=== PATIENT | female | born 1940 | race Caucasian/White ===

== ENCOUNTER 2025-09-14 07:03 | Inpatient (IN) ==
--- NOTE | 2025-09-14 07:54 | ED.PDOC ---
General <SARABJIT KEVIN MD - Last Filed: 09/14/25 08:41> [facility] ED Provider: Dr. SARABJIT KEVIN MD Chief Complaint: Abnormal Labs Stated Complaint: 84 yo WF seen in the office a couple of days ago and had outpatient labs and was contacted about her very low hemoglobin of 5 or less. Been feeling dizzy on standing, not when lying down, and GIRARD lately. Hx of recent severe anemia and had transfusion in April, late July and possibly May. Since then she had colonoscopy that was non-diagnostic but no EGD. Also seen at the Cancer center and had studies, including BM biopsy. Have not been told why she's anemic. Denied any rectal bleeding or hematuria. No abdominal pain or chest pain. No back pain. Time Seen by Provider: 09/14/25 07:40 Mode of Arrival: Walk-In Information Source: Patient Exam Limitations: No limitations Primary Care Provider: NADEEM WOODSON DNP,CLINICAL COUNSELOR Referred to ED by: PCP Seen Within Last 72 Hours for Same Complaint By: Clinic Nursing and Triage Documentation Reviewed and Agree: Yes Opioid Naive vs. Tolerant Does Patient Take Opioids?: No What is Opioid Naive?: *Opioid Naive implies the patient is not already taking opioids or not chronically receiving opioids on a daily basis. *PRN dosing is not "usually" associated with tolerance. *Patients are at higher risk of over-sedation and aspiration. What is Opioid Tolerant?: *Opioid Tolerance implies less than the expected response to an opioid. *Acquired tolerance is defined by the patient taking 60mg of oral morphine daily (or equianalgesic dose of another opioid) for 1 week or more. *Often associated with chronic pain. *May take more than usual dose to achieve desired pain control. Review of Systems <SARABJIT KEVIN MD - Last Filed: 09/14/25 08:41> Review Of Systems Constitutional: Reports Malaise and Weakness Eyes: Reports No symptoms Ears, Nose, Mouth, Throat: Reports No symptoms Respiratory: Reports Cough (dry cough for several weeks. 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 complications (ICD-10) Family History Mother Hypertension FATHER Prostate cancer Social History Smoking and tobacco status: Never smoker Alcohol intake: never Surgical History H/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) Female Reproductive History Menstrual Hx Hysterectomy: Yes Physical Exam <SARABJIT KEVIN MD - Last Filed: 09/14/25 08:41> Physical Exam Appearance: Reports No pain distress and Well-nourished Ill-appearing: Mild Pain Distress: None Eyes: Reports EOMI ENT: Reports Nose normal and Oropharynx normal Neck: Supple Respiratory: Reports Airway patent, Breath sounds clear and Respirations nonlabored; Denies Wheezes or Retractions Cardiovascular: Reports RRR, Pulses normal, No rub and No murmur GI/: Reports Soft, Nontender, No masses and Bowel sounds normal; Denies Tender Musculoskeletal: Reports Normal strength, ROM intact, No edema and No calf tenderness Skin: Reports Warm, Dry and Pale Neurological: Reports Sensation intact, Motor intact, Reflexes intact, Alert and Oriented Psychiatric: Reports Affect appropriate and Mood appropriate Interpretation <SARABJIT KEVIN MD - Last Filed: 09/14/25 08:41> EKG Interpretation EKG Interpretation By: ED Physician Time of EKG #1: 11:13 Rate: Normal Rhythm: Sinus Ectopy: None Alicia: Left ST Segment: Normal Interpretation: NSR, LAD, 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 Perry) Admit To: Observation Critical Care Note <ORQUIDEA GRANADOS MD - Last Filed: 09/15/25 07:31> Critical Care Note Total Critical Care Time (mins): 30 Comments: Patient's hemoglobin noted to be critical and arrangements were made for blood transfusion and compatibility prior to admission. Patient has had previous colonoscopy but has not had an upper endoscopy. Patient will continue to follow-up with GI Dr. Parada in outpatient basis but needs to be admitted for transfusion and stabilization. Discussions made with hospitalist for admission. Course <SARABJIT KEVIN MD - Last Filed: 09/14/25 08:41> Course 09/15/25 05:05 09/15/25 05:05 Orders, Labs, Meds: Lab Review 09/14/25 09/14/25 08:04 08:04 WBC 4.17 L RBC 1.96 L Hgb 6.0 L* Hct 20.1 L MCV 102.6 H MCH 30.6 MCHC 29.9 L RDW Coeff of Ashley 16.7 H Plt Count 215 Immature Gran % (Auto) 0.5 Neut % (Auto) 78.6 H Lymph % (Auto) 14.9 [place] % (Auto) 5.3 Eos % (Auto) 0.5 Baso % (Auto) 0.2 Neut # (Auto) 3.3 Lymph # (Auto) 0.6 [place] # (Auto) 0.2 L Eos # (Auto) 0.0 Baso # (Auto) 0.0 Immature Gran # (Auto) 0.0 Sodium 132.1 L Potassium 2.69 L* Chloride 99.3 Carbon Dioxide 29.9 Anion Gap 5.59 BUN 13.7 Creatinine 0.95 Estimated GFR (MDRD) 56.00 BUN/Creatinine Ratio 14.42 Glucose 155.6 H Calcium 8.14 L Magnesium 1.53 L Iron 68.6 TIBC 291 % Saturation 24 Total Bilirubin 1.34 H AST 29.2 ALT 12.3 Alkaline Phosphatase 78.6 Total Protein 6.41 Albumin 2.96 L Globulin 3.45 Albumin/Globulin Ratio 0.85 Vitamin B12 > 1000 H Folate 10.10 Blood Type O POSITIVE O POSITIVE Antibody Screen Negative Crossmatch (AHG) See Detail Orders Category Date Time Status ADMIT OBSERVATION [PLACE PATIENT OBSERVATION] .TO ADMISSION 09/14/25 09:54 Active MEDSURG (MONITORED BED) TELEMETRY MONITORING TELE CARE 09/14/25 09:54 Active Saline Lock [ED IV/MEDIPORT/POWERPORT] .ONCE EMERGENCY 09/14/25 07:49 Active ABO/RH TYPE Stat LAB 09/14/25 08:04 Completed CBC W/ AUTO DIFF Stat LAB 09/14/25 08:04 Completed CMP [COMPREHENSIVE METABOLIC PANEL] Stat LAB 09/14/25 08:04 Completed FOLATE Stat LAB 09/14/25 08:04 Completed IRON AND TIBC Stat LAB 09/14/25 08:04 Completed PRBC Transfusion [PACKED CELLS] Stat LAB 09/14/25 08:04 Completed TYPE AND SCREEN Stat LAB 09/14/25 08:04 Completed VITAMIN B12 Stat LAB 09/14/25 08:04 Completed 0.9 % Sodium Chloride [Saline Flush] Meds 09/14/25 07:49 Active 1 syr IVF PRN PRN Potassium Chloride [Potassium Chl 10% Oral Rose] Meds 09/14/25 08:40 Discontinued 30 meq PO ONCE STA Potassium Chloride [Potassium Chloride 10 Meq/100 ml Meds 09/14/25 08:40 Discontinued Premix] 10 meq in 100 ml IV ONCE Medications Generic Name Dose Route Start Last Admin Trade Name Freq PRN Reason Stop Dose Admin Acetaminophen 650 mg 09/14/25 13:11 09/15/25 06:34 Acetaminophen 325 Mg Tablet PO 650 mg Q4H PRN Administration Mild Pain Atorvastatin Calcium 20 mg 09/15/25 09:00 Atorvastatin Calcium 20 Mg Tablet PO DAILY PAYTON Benzonatate 100 mg 09/14/25 13:11 09/14/25 21:01 Benzonatate 100 Mg Capsule PO 100 mg TID PRN Administration Cough Cetirizine HCl 10 mg 09/15/25 09:00 Cetirizine Hcl 10 Mg Tablet PO DAILY PAYTON Dextrose 50 ml 09/14/25 13:11 Dextrose 50 % In Water 50 Ml Disp.Syrin IVP ONCE PRN Unconscious Hypoglycemia Protocol Doxycycline Hyclate 100 mg 09/14/25 14:30 09/14/25 21:00 Doxycycline Hyclate 100 Mg Capsule PO 09/18/25 21:01 100 mg Q12HR PAYTON Administration Ferrous Sulfate 324 mg 09/15/25 06:00 09/15/25 05:09 Ferrous Sulfate 324 Mg Tablet. PO 324 mg QDAC2 PAYTON Administration Guaifenesin/Dextromethorphan 10 ml 09/14/25 13:11 09/14/25 16:02 Guaifenesin/Dextromethorphan 200/20 Mg/10 Ml Cup PO 10 ml Q6HR PRN Administration Cough Hydralazine HCl 25 mg 09/14/25 15:00 09/14/25 21:01 Hydralazine Hcl 50 Mg Tablet PO 25 mg 3XD PAYTON Administration CEFTRIAXONE/D5W 1 GM PREMIX 1 gm in 50 mls @ 100 mls/hr 09/14/25 14:30 09/14/25 17:08 Rocephin 1 Gm/50 Ml D5w IV 09/17/25 14:29 100 mls/hr DAILY PAYTON Administration Insulin Glargine 22 unit 09/15/25 09:00 Insulin Glargine,Hum.Rec.Anlog 100 Units/Ml SUBCUT QAM PAYTON Insulin Human Lispro 0 unit 09/14/25 13:30 09/15/25 05:58 Insulin Lispro 100 Unit/Ml (10 Ml Vial) SUBCUT 2 unit PRN PRN Administration Hyperglycemia Protocol Levothyroxine Sodium 88 mcg 09/15/25 06:00 09/15/25 05:09 Levothyroxine Sodium 88 Mcg Tablet PO 88 mcg QDAC2 PAYTON Administration Losartan Potassium 100 mg 09/15/25 09:00 Losartan Potassium 100 Mg Tablet PO DAILY PAYTON Meclizine HCl 12.5 mg 09/14/25 13:16 Meclizine Hcl 25 Mg Tablet PO 3XD PRN Dizziness Metoprolol Succinate 100 mg 09/15/25 09:00 Metoprolol Succinate 50 Mg Tab.Er.24h PO DAILY PAYTON Ondansetron HCl 4 mg 09/14/25 13:11 Ondansetron Hcl/Pf 4 Mg/2 Ml Sdv IVP Q6H PRN Nausea / Vomiting Sodium Chloride 1 syr 09/14/25 07:49 0.9% Sodium Chloride 10 Ml Disp.Syrin IVF PRN PRN To flush IV Trazodone HCl 50 mg 09/14/25 21:00 09/14/25 21:01 Trazodone Hcl 50 Mg Tablet PO 50 mg BEDTIME PAYTON Administration Discontinued Medications Generic Name Dose Route Start Last Admin Trade Name Freq PRN Reason Stop Dose Admin Cefdinir 300 mg 09/14/25 21:00 Cefdinir 300 Mg Capsule PO 09/17/25 20:59 2XD PAYTON Furosemide 40 mg 09/14/25 14:08 09/14/25 17:05 Furosemide Inj 40 Mg/4 Ml Vial IVP 09/14/25 14:09 40 mg ONCE ONE Administration Potassium Chloride 10 meq in 100 mls @ 100 mls/hr 09/14/25 08:40 09/14/25 08:56 Potassium Chloride 10 Meq/100 Ml Premix IV 09/14/25 09:39 100 mls/hr ONCE ONE Administration MAGNESIUM SULFATE IN WATER 2 gm in 50 mls @ 25 mls/hr 09/14/25 14:07 09/14/25 19:49 Magnesium Sulf 2 G/50 Ml Bag IV 09/14/25 16:06 25 mls/hr ONCE ONE Administration Potassium Chloride 30 meq 09/14/25 08:40 09/14/25 10:02 Potassium Chloride 40 Meq/30 Ml Cup PO 09/14/25 08:41 Not Given ONCE STA Potassium Chloride 40 meq 09/14/25 15:00 09/14/25 16:02 Potassium Chloride 20 Meq Tab PO 09/14/25 15:01 40 meq ONCE ONE Administration Vital Signs: Temp Pulse Resp BP Pulse Ox O2 Flow Rate 09/14/25 09:53 77 18 146/93 H 97 09/14/25 09:19 2 09/14/25 07:25 97.9 F 78 18 156/65 H 85 L <ORQUIDEA GRANADOS MD - Last Filed: 09/15/25 07:31> Course Orders, Labs, Meds: Lab Review 09/14/25 09/14/25 08:04 08:04 WBC 4.17 L RBC 1.96 L Hgb 6.0 L* Hct 20.1 L MCV 102.6 H MCH 30.6 MCHC 29.9 L RDW Coeff of Ashley 16.7 H Plt Count 215 Immature Gran % (Auto) 0.5 Neut % (Auto) 78.6 H Lymph % (Auto) 14.9 [place] % (Auto) 5.3 Eos % (Auto) 0.5 Baso % (Auto) 0.2 Neut # (Auto) 3.3 Lymph # (Auto) 0.6 [place] # (Auto) 0.2 L Eos # (Auto) 0.0 Baso # (Auto) 0.0 Immature Gran # (Auto) 0.0 Sodium 132.1 L Potassium 2.69 L* Chloride 99.3 Carbon Dioxide 29.9 Anion Gap 5.59 BUN 13.7 Creatinine 0.95 Estimated GFR (MDRD) 56.00 BUN/Creatinine Ratio 14.42 Glucose 155.6 H Calcium 8.14 L Magnesium 1.53 L Iron 68.6 TIBC 291 % Saturation 24 Total Bilirubin 1.34 H AST 29.2 ALT 12.3 Alkaline Phosphatase 78.6 Total Protein 6.41 Albumin 2.96 L Globulin 3.45 Albumin/Globulin Ratio 0.85 Vitamin B12 > 1000 H Folate 10.10 Blood Type O POSITIVE O POSITIVE Antibody Screen Negative Crossmatch (AHG) See Detail Orders Category Date Time Status ADMIT OBSERVATION [PLACE PATIENT OBSERVATION] .TO ADMISSION 09/14/25 09:54 Active MEDSURG (MONITORED BED) TELEMETRY MONITORING TELE CARE 09/14/25 09:54 Active Saline Lock [ED IV/MEDIPORT/POWERPORT] .ONCE EMERGENCY 09/14/25 07:49 Active ABO/RH TYPE Stat LAB 09/14/25 08:04 Completed CBC W/ AUTO DIFF Stat LAB 09/14/25 08:04 Completed CMP [COMPREHENSIVE METABOLIC PANEL] Stat LAB 09/14/25 08:04 Completed FOLATE Stat LAB 09/14/25 08:04 Completed IRON AND TIBC Stat LAB 09/14/25 08:04 Completed PRBC Transfusion [PACKED CELLS] Stat LAB 09/14/25 08:04 Completed TYPE AND SCREEN Stat LAB 09/14/25 08:04 Completed VITAMIN B12 Stat LAB 09/14/25 08:04 Completed 0.9 % Sodium Chloride [Saline Flush] Meds 09/14/25 07:49 Active 1 syr IVF PRN PRN Potassium Chloride [Potassium Chl 10% Oral Rose] Meds 09/14/25 08:40 Discontinued 30 meq PO ONCE STA Potassium Chloride [Potassium Chloride 10 Meq/100 ml Meds 09/14/25 08:40 Discontinued Premix] 10 meq in 100 ml IV ONCE Medications Generic Name Dose Route Start Last Admin Trade Name Freq PRN Reason Stop Dose Admin Acetaminophen 650 mg 09/14/25 13:11 09/15/25 06:34 Acetaminophen 325 Mg Tablet PO 650 mg Q4H PRN Administration Mild Pain Atorvastatin Calcium 20 mg 09/15/25 09:00 Atorvastatin Calcium 20 Mg Tablet PO DAILY PAYTON Benzonatate 100 mg 09/14/25 13:11 09/14/25 21:01 Benzonatate 100 Mg Capsule PO 100 mg TID PRN Administration Cough Cetirizine HCl 10 mg 09/15/25 09:00 Cetirizine Hcl 10 Mg Tablet PO DAILY PAYTON Dextrose 50 ml 09/14/25 13:11 Dextrose 50 % In Water 50 Ml Disp.Syrin IVP ONCE PRN Unconscious Hypoglycemia Protocol Doxycycline Hyclate 100 mg 09/14/25 14:30 09/14/25 21:00 Doxycycline Hyclate 100 Mg Capsule PO 09/18/25 21:01 100 mg Q12HR PAYTON Administration Ferrous Sulfate 324 mg 09/15/25 06:00 09/15/25 05:09 Ferrous Sulfate 324 Mg Tablet.Dr PO 324 mg QDAC2 PAYTON Administration Guaifenesin/Dextromethorphan 10 ml 09/14/25 13:11 09/14/25 16:02 Guaifenesin/Dextromethorphan 200/20 Mg/10 Ml Cup PO 10 ml Q6HR PRN Administration Cough Hydralazine HCl 25 mg 09/14/25 15:00 09/14/25 21:01 Hydralazine Hcl 50 Mg Tablet PO 25 mg 3XD PAYTON Administration CEFTRIAXONE/D5W 1 GM PREMIX 1 gm in 50 mls @ 100 mls/hr 09/14/25 14:30 09/14/25 17:08 Rocephin 1 Gm/50 Ml D5w IV 09/17/25 14:29 100 mls/hr DAILY PAYTON Administration Insulin Glargine 22 unit 09/15/25 09:00 Insulin Glargine,Hum.Rec.Anlog 100 Units/Ml SUBCUT QAM [facility] Insulin Human Lispro 0 unit 09/14/25 13:30 09/15/25 05:58 Insulin Lispro 100 Unit/Ml (10 Ml Vial) SUBCUT 2 unit PRN PRN Administration Hyperglycemia Protocol Levothyroxine Sodium 88 mcg 09/15/25 06:00 09/15/25 05:09 Levothyroxine Sodium 88 Mcg Tablet PO 88 mcg QDAC2 PAYTON Administration Losartan Potassium 100 mg 09/15/25 09:00 Losartan Potassium 100 Mg Tablet PO DAILY PAYTON Meclizine HCl 12.5 mg 09/14/25 13:16 Meclizine Hcl 25 Mg Tablet PO 3XD PRN Dizziness Metoprolol Succinate 100 mg 09/15/25 09:00 Metoprolol Succinate 50 Mg Tab.Er.24h PO DAILY PAYTON Ondansetron HCl 4 mg 09/14/25 13:11 Ondansetron Hcl/Pf 4 Mg/2 Ml Sdv IVP Q6H PRN Nausea / Vomiting Sodium Chloride 1 syr 09/14/25 07:49 0.9% Sodium Chloride 10 Ml Disp.Syrin IVF PRN PRN To flush IV Trazodone HCl 50 mg 09/14/25 21:00 09/14/25 21:01 Trazodone Hcl 50 Mg Tablet PO 50 mg BEDTIME PAYTON Administration Discontinued Medications Generic Name Dose Route Start Last Admin Trade Name Freq PRN Reason Stop Dose Admin Cefdinir 300 mg 09/14/25 21:00 Cefdinir 300 Mg Capsule PO 09/17/25 20:59 2XD PAY[place] Furosemide 40 mg 09/14/25 14:08 09/14/25 17:05 Furosemide Inj 40 Mg/4 Ml Vial IVP 09/14/25 14:09 40 mg ONCE ONE Administration Potassium Chloride 10 meq in 100 mls @ 100 mls/hr 09/14/25 08:40 09/14/25 08:56 Potassium Chloride 10 Meq/100 Ml Premix IV 09/14/25 09:39 100 mls/hr ONCE ONE Administration MAGNESIUM SULFATE IN WATER 2 gm in 50 mls @ 25 mls/hr 09/14/25 14:07 09/14/25 19:49 Magnesium Sulf 2 G/50 Ml Bag IV 09/14/25 16:06 25 mls/hr ONCE ONE Administration Potassium Chloride 30 meq 09/14/25 08:40 09/14/25 10:02 Potassium Chloride 40 Meq/30 Ml Cup PO 09/14/25 08:41 Not Given ONCE STA Potassium Chloride 40 meq 09/14/25 15:00 09/14/25 16:02 Potassium Chloride 20 Meq Tab PO 09/14/25 15:01 40 meq ONCE ONE Administration Vital Signs: Temp Pulse Resp BP Pulse Ox O2 Flow Rate 09/14/25 09:53 77 18 146/93 H 97 09/14/25 09:19 2 09/14/25 07:25 97.9 F 78 18 156/65 H 85 L Discharge Plan Discharge Patient Disposition: PLACED OBSERVATION Discharge Problem: Iron deficiency anemia Qualifiers: Iron deficiency anemia type: unspecified iron deficiency Qualified Code(s): D 50.9 - Iron deficiency anemia, unspecified Did you review [place] [employer] for ALL controlled substances?: Not Applicable ED Provider: SARABJIT KEVIN Condition: Stable
[2025-09-14 08:17] LABS: IMMATURE GRANULOCYTE # (AUTO) 0.0 (0.0-1.0); IMMATURE GRANULOCYTE % (AUTO) 0.5 % (0.0-5.0); RDW COEFFICIENT OF VARIATION 16.7 % (11.6-14.8)
[2025-09-14 08:31] LABS: CREATININE 0.95 mg/dL (0.60-1.30)
[2025-09-14 08:46] LABS: % IRON SATURATION 24 %
[2025-09-14] MEDS: POTASSIUM CHLORIDE 10 MEQ/100 ML PREMIX 10 MEQ/100 ML BAG IV ONE (08:56)
[2025-09-14] MEDS: POTASSIUM CHL 10% ORAL SOL PO STA (10:02)
[2025-09-14 12:34] VITALS: BMI 24.5
[2025-09-14] MEDS ORDERED: DEXTROSE 50%-WATER ABBOJECT IVP PRN (13:11)
[2025-09-14] MEDS ORDERED: ZOFRAN SDV IVP PRN (13:11)
[2025-09-14] MEDS ORDERED: ANTIVERT PO PRN (13:16)
--- NOTE | 2025-09-14 13:31 | PCM ---
Date of Service Date Seen by Provider: 09/14/25 Time Seen by Provider: 13:00 Admit Day/Time Admission Date: 09/14/25 Admission Time: 09:54 Reason for Admission Chief Complaint: ANEMIA Hospital Provider Hospital Provider: LEE MIX PA-C, [facility] [place] Primary Care Physician: NADEEM WOODSON, DNP,GERM DRIER History of Present Illness History of Present Illness: Patient is an 84 year old female with a PMH of iron deficiency anemia, hyperlipidemia, acute bronchitis, DM, dizziness, hypothyroidism, HTN, and insomnia. She presented to the ED today due to lab results from her PCP that showed she had a low hemoglobin and hematocrit. Last hgb was 9.4 on 08/08/25. She has dealing with anemia since May and has had between 4-8 transfusions since then. She has had workup from GI which showed positive hemeoccult and a negative colonoscopy. She also has seen oncology and all workup has been negative as well including bone marrow biopsy. Today in the ER her hgb was 6 and hct was 20. She denies any symptoms of anemia such as fatigue, dizziness, or dyspnea. She denies bloody stools but states it is difficult to tell as her stools are dark from her iron supplement. Over the past 6 months she has had an unintentional 20 lb weight loss. She states she has a diminished appetite and does not eat much lately. Admitted to obs and will receive 2 units of packed RBCs. Case Discussed With Case Discussed With: Patient's case was discussed with the ER Physicians, Dr. Feliciano. [facility] Medical History Hypothyroidism E03.9 - Hypothyroidism, unspecified (ICD-10) Hypertension I10 - Essential (primary) hypertension (ICD-10) Diabetes 1.5, managed as type 1 E13.9 - Other specified diabetes mellitus without complications (ICD-10) Surgical History H/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) Family History Mother Hypertension FATHER Prostate cancer Social History Smoking and tobacco status: Never smoker Alcohol intake: never Allergies Allergies Allergy/AdvReac Type Severity Reaction Status Date / Time azithromycin AdvReac Unknown Verified 09/14/25 07:25 clarithromycin AdvReac Unknown Verified 09/14/25 07:25 clindamycin AdvReac Unknown Verified 09/14/25 07:25 Penicillins AdvReac Unknown Verified 09/14/25 07:25 Current Medications Home Medications Acetaminophen (Acetaminophen 325 Mg Tablet) 650 mg PO Q4H PRN PRN Reason: Mild Pain Atorvastatin Calcium (Atorvastatin Calcium 20 Mg Tablet) 20 mg PO DAILY [place] Benzonatate (Benzonatate 100 Mg Capsule) 100 mg PO TID PRN PRN Reason: Cough Cetirizine HCl (Cetirizine Hcl 10 Mg Tablet) 10 mg PO DAILY [place] Dextrose (Dextrose 50 % In Water 50 Ml Disp.Syrin) 50 ml IVP ONCE PRN; Protocol PRN Reason: Unconscious Hypoglycemia Doxycycline Hyclate (Doxycycline Hyclate 100 Mg Capsule) 100 mg PO Q12HR [place] Stop: 09/18/25 21:01 Ferrous Sulfate (Ferrous Sulfate 324 Mg Tablet.Dr) 324 mg PO QDAC2 [place] Guaifenesin/Dextromethorphan (Guaifenesin/Dextromethorphan 200/20 Mg/10 Ml Cup) 10 ml PO Q6HR PRN PRN Reason: Cough Hydralazine HCl (Hydralazine Hcl 50 Mg Tablet) 25 mg PO 3XD [place] MAGNESIUM SULFATE IN WATER (Magnesium Sulf 2 G/50 Ml Bag) 2 gm in 50 mls @ 25 mls/hr IV ONCE ONE Stop: 09/14/25 16:06 CEFTRIAXONE/D5W 1 GM PREMIX (Rocephin 1 Gm/50 Ml D5w) 1 gm in 50 mls @ 100 mls/hr IV DAILY [place] Stop: 09/17/25 14:29 Insulin Glargine (Insulin Glargine,Hum.Rec.Anlog 100 Units/Ml) 22 unit SUBCUT QAM [facility] Insulin Human Lispro (Insulin Lispro 100 Unit/Ml (10 Ml Vial)) 0 unit SUBCUT PRN PRN; Protocol PRN Reason: Hyperglycemia Last Admin: 09/14/25 14:09 Dose: 2 unit Levothyroxine Sodium (Levothyroxine Sodium 88 Mcg Tablet) 88 mcg PO QDAC2 [facility] Losartan Potassium (Losartan Potassium 100 Mg Tablet) 100 mg PO DAILY [place] Meclizine HCl (Meclizine Hcl 25 Mg Tablet) 12.5 mg PO 3XD PRN PRN Reason: Dizziness Metoprolol Succinate (Metoprolol Succinate 50 Mg Tab.Er.24h) 100 mg PO DAILY [place] Ondansetron HCl (Ondansetron Hcl/Pf 4 Mg/2 Ml Sdv) 4 mg IVP Q6H PRN PRN Reason: Nausea / Vomiting Sodium Chloride (0.9% Sodium Chloride 10 Ml Disp.Syrin) 1 syr IVF PRN PRN PRN Reason: To flush IV Trazodone HCl (Trazodone Hcl 50 Mg Tablet) 50 mg PO BEDTIME [place] atorvastatin 20 mg tablet 20 mg PO DAILY 05/12/25 [History Confirmed 09/14/25] hydralazine 25 mg tablet 25 mg PO 3XD 05/12/25 [History Confirmed 09/14/25] insulin glargine 100 unit/mL (3 mL) subcutaneous pen (Lantus Solostar U-100 Insulin) 22 unit subcut QAM 05/12/25 [History Confirmed 09/14/25] insulin lispro 100 unit/mL subcutaneous pen (Humalog KwikPen (U-100) Insulin) 1 sliding scale dose subcut TID 05/12/25 [History Confirmed 09/14/25] levothyroxine 88 mcg tablet (Synthroid) 88 mcg PO DAILY 05/12/25 [History Confirmed 09/14/25] losartan 100 mg tablet 100 mg PO DAILY 05/12/25 [History Confirmed 09/14/25] meclizine 12.5 mg tablet 12.5 mg PO 3XD PRN dizziness 05/12/25 [History Confirmed 09/14/25] metoprolol succinate 100 mg tablet,extended release 24 hr 100 mg PO DAILY 05/12/25 [History Confirmed 09/14/25] trazodone 50 mg tablet 50 mg PO BEDTIME 05/12/25 [History Confirmed 09/14/25] cefdinir 300 mg capsule 300 mg PO 2XD 09/14/25 [History Confirmed 09/14/25] ferrous sulfate 325 mg (65 mg iron) tablet 325 mg PO QAM 09/14/25 [History Confirmed 09/14/25] levocetirizine 5 mg tablet 5 mg PO DAILY 09/14/25 [History Confirmed 09/14/25] Opioid Naive vs. Tolerant Does Patient Take Opioids?: No Is Patient Opioid Naive?: Yes What is Opioid Naive?: *Opioid Naive implies the patient is not already taking opioids or not chronically receiving opioids on a daily basis. *PRN dosing is not "usually" associated with tolerance. *Patients are at higher risk of over-sedation and aspiration. Is Patient Opioid Tolerant?: No What is Opioid Tolerant?: *Opioid Tolerance implies less than the expected response to an opioid. *Acquired tolerance is defined by the patient taking 60mg of oral morphine daily (or equianalgesic dose of another opioid) for 1 week or more. *Often associated with chronic pain. *May take more than usual dose to achieve desired pain control. Review of Systems Constitutional: Reports Recent Weight Loss and Loss of appetite; Denies Fever, Fatigue, Chills, Weakness or Sweats Head: Reports Normocephalic and Atraumatic Eyes: Denies Blurred vision or Vision Changes Cardiovascular: Denies Chest pain, Chest Pressure or Edema Respiratory: Reports Cough (Currently has acute bronchitis); Denies Shortness of air or Night Sweats Gastrointestinal: Denies Nausea, Vomiting, Diarrhea, Hematochezia, Black Tarry Stools, Abdominal pain or Melena Genitourinary: Denies Dysuria, Frequency or Hematuria Hematology: Reports Anemia Neurological: Denies Headache, Dizziness, Syncope or Weakness Physical examination Most Recent Vital Signs: Most Recent Vital Signs Temperature 98 F 09/14/25 12:46 Temperature Source Temporal Artery Scan 09/14/25 11:53 Temperature Source Temporal Artery Scan 09/14/25 07:25 Pulse Rate 79 09/14/25 12:46 Respiratory Rate 20 09/14/25 12:46 Blood Pressure 161/79 H 09/14/25 12:46 Blood Pressure Mean 106 09/14/25 12:46 Blood Pressure Left Arm 169/93 09/14/25 11:53 Blood Pressure Position Supine 09/14/25 11:53 O2 Sat by Pulse Oximetry 97 09/14/25 11:53 Oxygen Delivery Method Nasal Cannula 09/14/25 11:53 Oxygen Flow Rate 2 09/14/25 11:53 Height 5 ft 2 in 09/14/25 11:53 Weight 60.9 kg 09/14/25 11:53 Appearance: Positive Well-appearing, No Apparent Distress and Alert and Oriented x3 Skin: Positive Warm and Other (pallor) HEENT: Positive Normocephalic and Atraumatic Neck: Positive Supple Chest/Lungs: Positive Symmetrical With Equal Breath Sounds, Clear to Auscultation Bilaterally and Good Air Movement all 4 Lung Knight Heart: Positive RRR GI/: Positive Soft, Nontender and Bowel Sounds Normal Neurological: Positive Sensation Intact, Motor intact, Cranial Nerves Intact, Alert and Oriented Psychiatric: Positive Oriented x4, Appropriate Mood and Appropriate Affect Labs This Visit Labs This Visit: Labs This Visit 09/14/25 09/14/25 08:04 08:04 WBC 4.17 L RBC 1.96 L Hgb 6.0 L* Hct 20.1 L MCV 102.6 H MCH 30.6 MCHC 29.9 L RDW Coeff of Ashley 16.7 H Plt Count 215 Immature Gran % (Auto) 0.5 Neut % (Auto) 78.6 H Lymph % (Auto) 14.9 [place] % (Auto) 5.3 Eos % (Auto) 0.5 Baso % (Auto) 0.2 Neut # (Auto) 3.3 Lymph # (Auto) 0.6 [place] # (Auto) 0.2 L Eos # (Auto) 0.0 Baso # (Auto) 0.0 Immature Gran # (Auto) 0.0 Sodium 132.1 L Potassium 2.69 L* Chloride 99.3 Carbon Dioxide 29.9 Anion Gap 5.59 BUN 13.7 Creatinine 0.95 Estimated GFR (MDRD) 56.00 BUN/Creatinine Ratio 14.42 Glucose 155.6 H Calcium 8.14 L Magnesium 1.53 L Iron 68.6 TIBC 291 % Saturation 24 Total Bilirubin 1.34 H AST 29.2 ALT 12.3 Alkaline Phosphatase 78.6 Total Protein 6.41 Albumin 2.96 L Globulin 3.45 Albumin/Globulin Ratio 0.85 Vitamin B12 > 1000 H Folate 10.10 Blood Type O POSITIVE O POSITIVE Antibody Screen Negative Crossmatch ([facility]) See Detail Review Statement Review Statement: I have independently reviewed and interpreted the labs/EKGs/imaging that were ordered by the ER provider. I have reviewed all outside records that are available currently in our EMR including imaging/notes/labs from previous visits. Plan Plan: 1. Acute on chronic anemia - etiology unclear. Currently being worked up by GI and heme/onc. Since bone marrow biopsy was unremarkable, GI will likely do EGD as next step. We will see if we can get her a sooner appointment for follow up. Iron, b12, and folate are normal. 2 units of PRBCs ordered. Check in 1 hr H&H. Patient had a recent normal colonoscopy 2. Hypokalemia - was given 40 meq K in ER, will give another 40 meq this evening. 3. Acute bronchitis - continue cefdinir. Will check cxr to rule out underlying pneumonia 4. Hyperlipidemia - continue home meds 5. Hypertension - continue home meds 6. Diabetes Mellitus - continue home meds. Diabetic diet. Accucheck ACHS with mild sliding scale. 7. Hypothyroidism - continue home meds 8. Chronic dizziness - continue home meds 9. Insomnia - continue home meds DVT Prophylaxis: Ambulation Time Spent: Greater than 80 minutes spent with patient, 50% of the time spent with this patient was devoted to counseling and coordination of care. Advanced Care Plannin minutes spent discussing advance care planning. Admit to: observation Discussed Plan of Care with Dr. Ariel Perry. Update: CXR showing multifocal pna, possible edema. Rocephin, doxy, and lasix 40 x1 ordered. Updated patient on CXR findings. Medications Medication Orders: Medications Ordered Category Date Time Status 0.9 % Sodium Chloride [Saline Flush] Meds 09/14/25 07:49 Active 1 syr IVF PRN PRN Acetaminophen [Tylenol] Meds 09/14/25 13:11 Ordered 650 mg PO Q4H PRN Atorvastatin Calcium [Lipitor] Meds 09/15/25 09:00 Ordered 20 mg PO DAILY Benzonatate [Tessalon Perles] Meds 09/14/25 13:11 Ordered 100 mg PO TID PRN Cefdinir [Omnicef] Meds 09/14/25 21:00 Ordered 300 mg PO 2XD Dextrose 50 % in Water [Dextrose 50%-Water Abboject] Meds 09/14/25 13:11 Ordered 50 ml IVP ONCE PRN Guaifenesin/Dextromethorphan [Robitussin Dm Syrup] Meds 09/14/25 13:11 Ordered 10 ml PO Q6HR PRN Hydralazine HCl [Apresoline] Meds 09/14/25 15:00 Ordered 25 mg PO 3XD Insulin Glargine,Hum.rec.anlog [Lantus] Meds 09/15/25 09:00 Ordered 22 unit SUBCUT QAM Levothyroxine Sodium [Synthroid] Meds 09/15/25 09:00 Ordered 88 mcg PO DAILY Losartan Potassium [Cozaar] Meds 09/15/25 09:00 Ordered 100 mg PO DAILY Meclizine HCl [Antivert] Meds 09/14/25 13:16 Ordered 12.5 mg PO 3XD PRN DIZ Dizziness Metoprolol Succinate [Toprol Xl] Meds 09/15/25 09:00 Ordered 100 mg PO DAILY Ondansetron HCl/Pf [Zofran Sdv] Meds 09/14/25 13:11 Ordered 4 mg IVP Q6H PRN Trazodone HCl [Desyrel] Meds 09/14/25 21:00 Ordered 50 mg PO BEDTIME ferrous sulfate Meds 09/15/25 09:00 Ordered 325 mg PO QAM levocetirizine Meds 09/15/25 09:00 Ordered 5 mg PO DAILY
--- NOTE | 2025-09-14 13:50 | DI ---
EXAM: CHEST ONE-VIEW HISTORY: Cough and shortness of breath COMPARISON: None FINDINGS: The heart size is prominent. There are diffuse mixed interstitial and alveolar breath throughout the lungs. The costophrenic angles are blunted. No pneumothoraces. IMPRESSION: 1. Multifocal pneumonia suggested with trace pleural effusions. Pulmonary edema considered less likely but is also a differential consideration. 2. Prominent heart size. .
[2025-09-14] MEDS: HUMALOG (10 ML VIAL) SUBCUT PRN (14:09)
[2025-09-14] MEDS: ROBITUSSIN DM SYRUP PO PRN (16:02)
[2025-09-14] MEDS: DOXYCYCLINE PO SCH (16:02)
[2025-09-14] MEDS: APRESOLINE PO SCH (16:02)
[2025-09-14] MEDS: K-DUR PO ONE (16:02)
[2025-09-14] MEDS: LASIX IVP ONE (17:05)
[2025-09-14] MEDS: ROCEPHIN 1 GM/50 ML D5W 1 GM/50 ML BAG IV SCH (17:08)
[2025-09-14] MEDS: LASIX ONE (19:31)
[2025-09-14] MEDS: MAGNESIUM SULF 2 G/50 ML BAG 2 GM/50 ML PIGGYBACK IV ONE (19:49)
[2025-09-14] MEDS ORDERED: OMNICEF PO SCH (21:00)
[2025-09-14] MEDS: TESSALON PERLES PO PRN (21:01)
[2025-09-14] MEDS: DESYREL PO SCH (21:01)
[2025-09-15] MEDS: FERROUS SULFATE PO SCH (05:09)
[2025-09-15] MEDS: SYNTHROID PO SCH (05:09)
[2025-09-15 05:24] LABS: IMMATURE GRANULOCYTE # (AUTO) 0.0 (0.0-1.0); IMMATURE GRANULOCYTE % (AUTO) 0.2 % (0.0-5.0); RDW COEFFICIENT OF VARIATION 19.0 % (11.6-14.8)
[2025-09-15 05:37] LABS: CREATININE 0.99 mg/dL (0.60-1.30)
[2025-09-15] MEDS: TYLENOL PO PRN (06:34)
[2025-09-15] MEDS ORDERED: NON-FORMULARY MEDICATION (Levocetirizine 5 mg tablet) PO SCH (09:00)
[2025-09-15] MEDS: LANTUS SUBCUT SCH (09:40)
[2025-09-15] MEDS: K-DUR PO ONE (09:48)
[2025-09-15] MEDS: LIPITOR PO SCH (09:49)
[2025-09-15] MEDS: TOPROL XL PO SCH (09:50)
[2025-09-15] MEDS: ZYRTEC PO SCH (09:51)
[2025-09-15] MEDS: COZAAR PO SCH (09:51)
[2025-09-15 11:07] VITALS: RESP 14
[2025-09-15 11:08] LABS: OCCULT BLOOD SAMPLE 1 POSITIVE (NEGATIVE)
[2025-09-15] MEDS: HUMALOG (10 ML VIAL) SUBCUT PRN (11:49)
--- NOTE | 2025-09-15 13:03 | DCSUM ---
Admission Date Admission Date: 09/14/25 Discharge Date Discharge Date: 09/15/25 Admission Diagnosis Admission Diagnosis: 1. Acute on chronic anemia Discharge Diagnosis Discharge Diagnosis: 1. Acute on chronic anemia - etiology unclear 2. Hypokalemia - improved 3. CAP 4. Hyperlipidemia 5. Hypertension 6. Diabetes Mellitus 7. Hypothyroidism 8. Chronic dizziness 9. Insomnia 10. Hypomagnesemia - resolved Hospital Provider Hospital Provider: LEE [facility]IX [facility]-C, [facility] Physician Primary Care Physician: NADEEM WOODSON, CHASE,STATISTICS INTERN Summary of History and Physical Summary of History and Physical: Patient is an 84 year old female with a PMH of iron deficiency anemia, hyperlipidemia, acute bronchitis, DM, dizziness, hypothyroidism, HTN, and insomnia. She presented to the ED due to lab results from her PCP that showed she had a low hemoglobin and hematocrit. Last hgb was 9.4 on 08/08/25. She has dealing with anemia since April where she was transfused at [facility]. Then again in May at [facility], and again after her bone marrow biopsy. She has had workup from GI which involved a negative colonoscopy. Had not yet had an EGD. She also has seen heme/onc with a negative bone marrow biopsy. Today in the ER her hgb was 6 and hct was 20. She denies any symptoms of anemia such as fatigue, dizziness, or dyspnea, although dizziness and weakness had been reported to her PCP to prompt the labs. She denies bloody stools but states it is difficult to tell as her stools are dark from her iron supplement. Over the past 6 months she has had a reported unintentional 20 lb weight loss. She states she has a diminished appetite and does not eat much lately. In April she had a CT c/a/p which was negative except for possible pneumonia. Admitted to obs and will receive 2 units of packed RBCs. Hospital Course Subjective: CXR obtained due to her cough, showing multifocal pna, possible edema. She was given rocephin, doxy, and one dose of lasix 40. She has been stable on 2L. She initially was tachy with coughing and exertion but this has improved. Post transfusion hemoglobin was up to 9.6. This morning her hgb is 7.8. Occult stool performed and is positive. Iron, b12, folate are normal. Overall I'm concerned as patient has no obvious answer for her anemia and has now required 4 transfusions since April of this year. She would benefit from higher level of care for further investigation, possibly an EGD if they deem necessary. This has been discussed with her and she is in agreement. Dr. Davalos, hospitalist at [facility] in [place] graciously accepts. Stable at time of transfer. Of note, her TSH in outpatient labs this week was 30. Appearance: Pleasant, No Apparent Distress, Alert and Other (+pallor ) HEENT: MMM CVS: Other (RRR) Abdomen: Soft, Non-Tender and No Distention Respiratory: No Accessory Muscle Use Extremities: No Edema Vital Signs: Most Recent Vital Signs Temperature 98.7 F 09/15/25 10:00 Temperature Source Temporal Artery Scan 09/15/25 10:00 Temperature Source Temporal Artery Scan 09/14/25 07:25 Pulse Rate 79 09/15/25 10:00 Respiratory Rate 14 09/15/25 10:00 Blood Pressure 124/72 09/15/25 10:00 Blood Pressure Mean 89 09/15/25 10:00 Blood Pressure Left Arm 169/93 09/14/25 11:53 Blood Pressure Location Left Arm 09/15/25 10:00 Blood Pressure Position Supine 09/15/25 05:27 O2 Sat by Pulse Oximetry 97 09/15/25 10:00 Oxygen Delivery Method Nasal Cannula 09/15/25 12:58 Oxygen Flow Rate 2 09/15/25 12:58 Height 5 ft 2 in 09/14/25 11:53 Weight 60.9 kg 09/14/25 11:53 Telemetry Type Remote Telemetry 09/15/25 07:00 Telemetry Monitoring Continues 09/15/25 01:00 Telemetry Heart Rate 73 09/15/25 07:00 Telemetry SPO2 94 09/15/25 07:00 EKG NH Interval 0.14 09/15/25 07:00 EKG QRS Interval 0.09 09/15/25 07:00 Telemetry Strip Reading SR 09/15/25 07:00 Imaging: EXAM: CHEST ONE-VIEW HISTORY: Cough and shortness of breath COMPARISON: None FINDINGS: The heart size is prominent. There are diffuse mixed interstitial and alveolar breath throughout the lungs. The costophrenic angles are blunted. No pneumothoraces. IMPRESSION: 1. Multifocal pneumonia suggested with trace pleural effusions. Pulmonary edema considered less likely but is also a differential consideration. 2. Prominent heart size. Lab Results Last 24 Hours: 09/15/25 09/15/25 09/15/25 10:35 08:17 05:05 WBC 4.59 L RBC 2.60 L Hgb 7.8 L Hct 24.0 L MCV 92.3 D MCH 30.0 MCHC 32.5 RDW Coeff of Ashley 19.0 H Plt Count 212 Immature Gran % (Auto) 0.2 Neut % (Auto) 75.1 Lymph % (Auto) 16.8 [place] % (Auto) 4.6 Eos % (Auto) 3.1 Baso % (Auto) 0.2 Neut # (Auto) 3.5 Lymph # (Auto) 0.8 [place] # (Auto) 0.2 L Eos # (Auto) 0.1 Baso # (Auto) 0.0 Immature Gran # (Auto) 0.0 Sodium 129.2 L Potassium 3.02 L Chloride 98.8 Carbon Dioxide 27.7 Anion Gap 5.72 BUN 17.9 H Creatinine 0.99 Estimated GFR (MDRD) 54.00 BUN/Creatinine Ratio 18.08 Glucose 211.2 H D Calcium 7.86 L Magnesium 2.01 Total Bilirubin 1.60 H AST 31.3 ALT 12.2 Alkaline Phosphatase 77.5 Total Protein 5.99 L Albumin 2.72 L Globulin 3.27 Albumin/Globulin Ratio 0.83 Stl Occult Blood (IFOB) Positive Blood Type Antibody Screen Crossmatch ([facility]) 09/14/25 09/14/25 18:05 08:04 WBC RBC Hgb 9.6 L D Hct 29.3 L D MCV MCH MCHC RDW Coeff of Ashley Plt Count Immature Gran % (Auto) Neut % (Auto) Lymph % (Auto) [place] % (Auto) Eos % (Auto) Baso % (Auto) Neut # (Auto) Lymph # (Auto) [place] # (Auto) Eos # (Auto) Baso # (Auto) Immature Gran # (Auto) Sodium Potassium Chloride Carbon Dioxide Anion Gap BUN Creatinine Estimated GFR (MDRD) BUN/Creatinine Ratio Glucose Calcium Magnesium 1.53 L Total Bilirubin AST ALT Alkaline Phosphatase Total Protein Albumin Globulin Albumin/Globulin Ratio Stl Occult Blood (IFOB) Blood Type O POSITIVE Antibody Screen Negative Crossmatch ([facility]) See Detail Discharge Instructions Discharge Planning: Discharge Planning > [address] Ariel Perry. Transfer to [facility], Dr. Davalos, hospitalist, accepts Discharge Medications: Home Medications Acetaminophen (Acetaminophen 325 Mg Tablet) 650 mg PO Q4H PRN PRN Reason: Mild Pain Last Admin: 09/15/25 06:34 Dose: 650 mg Atorvastatin Calcium (Atorvastatin Calcium 20 Mg Tablet) 20 mg PO DAILY [facility] Last Admin: 09/15/25 09:49 Dose: 20 mg Benzonatate (Benzonatate 100 Mg Capsule) 100 mg PO TID PRN PRN Reason: Cough Last Admin: 09/14/25 21:01 Dose: 100 mg Cetirizine HCl (Cetirizine Hcl 10 Mg Tablet) 10 mg PO DAILY [facility] Last Admin: 09/15/25 09:51 Dose: 10 mg Dextrose (Dextrose 50 % In Water 50 Ml Disp.Syrin) 50 ml IVP ONCE PRN; Protocol PRN Reason: Unconscious Hypoglycemia Doxycycline Hyclate (Doxycycline Hyclate 100 Mg Capsule) 100 mg PO Q12HR [facility] Stop: 09/18/25 21:01 Last Admin: 09/15/25 09:52 Dose: 100 mg Ferrous Sulfate (Ferrous Sulfate 324 Mg Tablet.) 324 mg PO QDAC2 [facility] Last Admin: 09/15/25 05:09 Dose: 324 mg Guaifenesin/Dextromethorphan (Guaifenesin/Dextromethorphan 200/20 Mg/10 Ml Cup) 10 ml PO Q6HR PRN PRN Reason: Cough Last Admin: 09/14/25 16:02 Dose: 10 ml Hydralazine HCl (Hydralazine Hcl 50 Mg Tablet) 25 mg PO 3XD [facility] Last Admin: 09/15/25 09:52 Dose: 25 mg CEFTRIAXONE/D5W 1 GM PREMIX (Rocephin 1 Gm/50 Ml D5w) 1 gm in 50 mls @ 100 mls/hr IV DAILY [facility] Stop: 09/17/25 14:29 Last Admin: 09/15/25 08:40 Dose: 100 mls/hr Insulin Glargine (Insulin Glargine,Hum.Rec.Anlog 100 Units/Ml) 22 unit SUBCUT QAM [facility] Last Admin: 09/15/25 09:40 Dose: 22 unit Insulin Human Lispro (Insulin Lispro 100 Unit/Ml (10 Ml Vial)) 0 unit SUBCUT PRN PRN; Protocol PRN Reason: Hyperglycemia Last Admin: 09/15/25 11:49 Dose: 15 unit Levothyroxine Sodium (Levothyroxine Sodium 100 Mcg Tablet) 100 mcg PO QDAC2 [facility] Losartan Potassium (Losartan Potassium 100 Mg Tablet) 100 mg PO DAILY [facility] Last Admin: 09/15/25 09:51 Dose: 100 mg Meclizine HCl (Meclizine Hcl 25 Mg Tablet) 12.5 mg PO 3XD PRN PRN Reason: Dizziness Metoprolol Succinate (Metoprolol Succinate 50 Mg Tab.Er.24h) 100 mg PO DAILY [facility] Last Admin: 09/15/25 09:50 Dose: 100 mg Ondansetron HCl (Ondansetron Hcl/Pf 4 Mg/2 Ml Sdv) 4 mg IVP Q6H PRN PRN Reason: Nausea / Vomiting Sodium Chloride (0.9% Sodium Chloride 10 Ml Disp.Syrin) 1 syr IVF PRN PRN PRN Reason: To flush IV Trazodone HCl (Trazodone Hcl 50 Mg Tablet) 50 mg PO BEDTIME [facility] Last Admin: 09/14/25 21:01 Dose: 50 mg Discharge Plan Discharge Discharge Orders: Discharge Patient (ONCE); Ordered 09/15/25 Ordered By: LEE MIX Activity Restrictions/Additional Instructions: Transfer to [facility] Dr. Davalos accepted Patient Disposition: TSF SHORT-TRM HOSP Did you review [place] [employer] for ALL controlled substances?: Not Applicable Discussed opioids are addictive and Narcan is available by prescription or from pharmacy.: No Condition: Stable
[2025-09-15] MEDS: HUMALOG (10 ML VIAL) SUBCUT ONE (13:37)
--- NOTE | 2025-09-15 14:15 | PCM.PROG ---
Provider Provider: LEE MIX [facility], [facility] Chief Complaint Chief Complaint: ANEMIA Vital Signs Vital Signs: Vital Signs: Last 24 Hours 09/14/25 14:35 09/14/25 15:35 09/14/25 16:35 Temperature 98 F 98.2 F 98.9 F Temperature Source Pulse Rate 75 74 74 Respiratory Rate 19 Blood Pressure 160/79 H 154/78 H 148/82 H Blood Pressure Mean 106 103 104 Blood Pressure Location Blood Pressure Position O2 Sat by Pulse Oximetry Oxygen Delivery Method Oxygen Flow Rate Telemetry Type Telemetry Monitoring Telemetry Heart Rate Telemetry SPO2 EKG VT Interval EKG QRS Interval Telemetry Strip Reading 09/14/25 16:39 09/14/25 18:00 09/14/25 19:00 Temperature 98.9 F 98.4 F Temperature Source Temporal Artery Scan Pulse Rate 74 114 H Respiratory Rate 20 Blood Pressure 158/87 H 168/96 H Blood Pressure Mean 110 120 Blood Pressure Location Left Arm Blood Pressure Position O2 Sat by Pulse Oximetry 95 Oxygen Delivery Method Nasal Cannula Oxygen Flow Rate Telemetry Type Remote Telemetry Telemetry Monitoring Continues Telemetry Heart Rate 77 Telemetry SPO2 96 EKG VT Interval 0.21 H EKG QRS Interval 0.06 Telemetry Strip Reading SR w/ PACs 09/14/25 20:00 09/14/25 20:00 09/14/25 21:13 Temperature 98.6 F Temperature Source Temporal Artery Scan Pulse Rate 76 Respiratory Rate 18 Blood Pressure 153/86 H Blood Pressure Mean 108 Blood Pressure Location Left Arm Blood Pressure Position Supine O2 Sat by Pulse Oximetry 95 Oxygen Delivery Method Nasal Cannula Nasal Cannula Nasal Cannula Oxygen Flow Rate 2 2 2 Telemetry Type Telemetry Monitoring Telemetry Heart Rate Telemetry SPO2 EKG VT Interval EKG QRS Interval Telemetry Strip Reading 09/15/25 01:00 09/15/25 02:00 09/15/25 05:27 Temperature 98.5 F 98.8 F Temperature Source Temporal Artery Scan Temporal Artery Scan Pulse Rate 73 75 Respiratory Rate 18 18 Blood Pressure 139/82 126/62 Blood Pressure Mean 101 83 Blood Pressure Location Left Arm Left Arm Blood Pressure Position Supine Supine O2 Sat by Pulse Oximetry 95 95 Oxygen Delivery Method Nasal Cannula Nasal Cannula Oxygen Flow Rate 2 2 Telemetry Type Remote Telemetry Telemetry Monitoring Continues Telemetry Heart Rate 73 Telemetry SPO2 94 EKG VT Interval 0.20 EKG QRS Interval 0.10 Telemetry Strip Reading SR 09/15/25 05:31 09/15/25 07:00 09/15/25 08:00 Temperature Temperature Source Pulse Rate Respiratory Rate 18 Blood Pressure Blood Pressure Mean Blood Pressure Location Blood Pressure Position O2 Sat by Pulse Oximetry 94 L Oxygen Delivery Method Nasal Cannula Nasal Cannula Oxygen Flow Rate 2 2 Telemetry Type Remote Telemetry Telemetry Monitoring Telemetry Heart Rate 73 Telemetry SPO2 94 EKG VT Interval 0.14 EKG QRS Interval 0.09 Telemetry Strip Reading 09/15/25 10:00 09/15/25 10:00 09/15/25 12:58 Temperature 98.7 F Temperature Source Temporal Artery Scan Pulse Rate 79 Respiratory Rate 14 Blood Pressure 124/72 Blood Pressure Mean 89 Blood Pressure Location Left Arm Blood Pressure Position O2 Sat by Pulse Oximetry 97 97 Oxygen Delivery Method Nasal Cannula Nasal Cannula Nasal Cannula Oxygen Flow Rate 2 2 2 Telemetry Type Telemetry Monitoring Telemetry Heart Rate Telemetry SPO2 EKG VT Interval EKG QRS Interval Telemetry Strip Reading Lab Results Lab Results: Lab Results: Last 24 Hours 09/15/25 09/15/25 09/15/25 10:35 08:17 05:05 WBC 4.59 L RBC 2.60 L Hgb 7.8 L Hct 24.0 L MCV 92.3 D MCH 30.0 MCHC 32.5 RDW Coeff of Ashley 19.0 H Plt Count 212 Immature Gran % (Auto) 0.2 Neut % (Auto) 75.1 Lymph % (Auto) 16.8 [place] % (Auto) 4.6 Eos % (Auto) 3.1 Baso % (Auto) 0.2 Neut # (Auto) 3.5 Lymph # (Auto) 0.8 [place] # (Auto) 0.2 L Eos # (Auto) 0.1 Baso # (Auto) 0.0 Immature Gran # (Auto) 0.0 Sodium 129.2 L Potassium 3.02 L Chloride 98.8 Carbon Dioxide 27.7 Anion Gap 5.72 BUN 17.9 H Creatinine 0.99 Estimated GFR (MDRD) 54.00 BUN/Creatinine Ratio 18.08 Glucose 211.2 H D Calcium 7.86 L Magnesium 2.01 Total Bilirubin 1.60 H AST 31.3 ALT 12.2 Alkaline Phosphatase 77.5 Total Protein 5.99 L Albumin 2.72 L Globulin 3.27 Albumin/Globulin Ratio 0.83 Stl Occult Blood (IFOB) Positive Crossmatch (AHG) 09/14/25 09/14/25 18:05 08:04 WBC RBC Hgb 9.6 L D Hct 29.3 L D MCV MCH MCHC RDW Coeff of [place] Plt Count Immature Gran % (Auto) Neut % (Auto) Lymph % (Auto) [place] % (Auto) Eos % (Auto) Baso % (Auto) Neut # (Auto) Lymph # (Auto) [place] # (Auto) Eos # (Auto) Baso # (Auto) Immature Gran # (Auto) Sodium Potassium Chloride Carbon Dioxide Anion Gap BUN Creatinine Estimated GFR (MDRD) BUN/Creatinine Ratio Glucose Calcium Magnesium Total Bilirubin AST ALT Alkaline Phosphatase Total Protein Albumin Globulin Albumin/Globulin Ratio Stl Occult Blood (IFOB) Crossmatch (AHG) See Detail Additional Comments Additional Comments: I have independently reviewed and interpreted the labs/EKGs/imaging ordered during this hospital stay. I have reviewed outside records that are available in our EMR that pertain to medical stay including imaging/notes/labs from previous visits. Active Medications Active Medications: Medications Generic Name Dose Route Start Last Admin Trade Name Freq PRN Reason Stop Dose Admin Acetaminophen 650 mg 09/14/25 13:11 09/15/25 06:34 Acetaminophen 325 Mg Tablet PO 650 mg Q4H PRN Administration Mild Pain Atorvastatin Calcium 20 mg 09/15/25 09:00 09/15/25 09:49 Atorvastatin Calcium 20 Mg Tablet PO 20 mg DAILY PAYTON Administration Benzonatate 100 mg 09/14/25 13:11 09/14/25 21:01 Benzonatate 100 Mg Capsule PO 100 mg TID PRN Administration Cough Cetirizine HCl 10 mg 09/15/25 09:00 09/15/25 09:51 Cetirizine Hcl 10 Mg Tablet PO 10 mg DAILY PAYTON Administration Dextrose 50 ml 09/14/25 13:11 Dextrose 50 % In Water 50 Ml Disp.Syrin IVP ONCE PRN Unconscious Hypoglycemia Protocol Doxycycline Hyclate 100 mg 09/14/25 14:30 09/15/25 09:52 Doxycycline Hyclate 100 Mg Capsule PO 09/18/25 21:01 100 mg Q12HR PAYTON Administration Ferrous Sulfate 324 mg 09/15/25 06:00 09/15/25 05:09 Ferrous Sulfate 324 Mg Tablet. PO 324 mg QDAC2 PAYTON Administration Guaifenesin/Dextromethorphan 10 ml 09/14/25 13:11 09/14/25 16:02 Guaifenesin/Dextromethorphan 200/20 Mg/10 Ml Cup PO 10 ml Q6HR PRN Administration Cough Hydralazine HCl 25 mg 09/14/25 15:00 09/15/25 09:52 Hydralazine Hcl 50 Mg Tablet PO 25 mg 3XD PAYTON Administration CEFTRIAXONE/D5W 1 GM PREMIX 1 gm in 50 mls @ 100 mls/hr 09/14/25 14:30 09/15/25 08:40 Rocephin 1 Gm/50 Ml D5w IV 09/17/25 14:29 100 mls/hr DAILY PAYTON Administration Insulin Glargine 22 unit 09/15/25 09:00 09/15/25 09:40 Insulin Glargine,Hum.Rec.Anlog 100 Units/Ml SUBCUT 22 unit QAM PAYTON Administration Insulin Human Lispro 0 unit 09/15/25 11:22 09/15/25 11:49 Insulin Lispro 100 Unit/Ml (10 Ml Vial) SUBCUT 15 unit PRN PRN Administration Hyperglycemia Protocol Levothyroxine Sodium 100 mcg 09/16/25 06:00 Levothyroxine Sodium 100 Mcg Tablet PO QDAC2 PAYTON Losartan Potassium 100 mg 09/15/25 09:00 09/15/25 09:51 Losartan Potassium 100 Mg Tablet PO 100 mg DAILY PAYTON Administration Meclizine HCl 12.5 mg 09/14/25 13:16 Meclizine Hcl 25 Mg Tablet PO 3XD PRN Dizziness Metoprolol Succinate 100 mg 09/15/25 09:00 09/15/25 09:50 Metoprolol Succinate 50 Mg Tab.Er.24h PO 100 mg DAILY PAYTON Administration Ondansetron HCl 4 mg 09/14/25 13:11 Ondansetron Hcl/Pf 4 Mg/2 Ml Sdv IVP Q6H PRN Nausea / Vomiting Sodium Chloride 1 syr 09/14/25 07:49 0.9% Sodium Chloride 10 Ml Disp.Syrin IVF PRN PRN To flush IV Trazodone HCl 50 mg 09/14/25 21:00 09/14/25 21:01 Trazodone Hcl 50 Mg Tablet PO 50 mg BEDTIME PAYTON Administration Review Statement Review Statement: I have personally discussed and reviewed the patient's visit/currently labs/imaging/decision making with Dr. Perry, my supervising attending. Greater that 50 minutes spent with patient, 50% of the time spent with this patient was devoted to counseling and coordination of care.
[2025-09-15 17:28] VITALS: BP 144/82; PULSE 80; TEMP 98.6
[2025-09-16] MEDS ORDERED: SYNTHROID PO SCH (06:00)
== END 2025-09-15 19:00 | disposition short-term general hospital (02) | DRG 811 ==
LOC: ED 07:03 → MEDSURG B 07:03
PROVIDERS: ADMIT Hospitalist; ATTEND Physician Assistant